=== PATIENT | male | born 1990 | race Caucasian/White ===

== ENCOUNTER 2022-10-07 11:21 | Emergency (ER) | payer OTHER ==
[~2022-10-07] VITALS: Ht 167.6 cm; Wt 79.0 kg
[2022-10-07] MEDS ORDERED: KETOROLAC 60MG/2ML VIAL IM ONE (13:45)
[2022-10-07 14:03] VITALS: BP 166/51
[2022-10-07] MEDS ORDERED: IBUP-2028 MT (14:49)
[2022-10-07] MEDS ORDERED: CYCL10TA21 MT (14:49)
== END 2022-10-07 14:55 | disposition home or self-care (01) ==
LOC: ER 12:19
DX: M54.50 Low back pain, unspecified (principal); Z86.711 Personal history of pulmonary embolism
CPT/HCPCS: 96372; 99283; J1885